=== PATIENT | male | born 1980 ===

== ENCOUNTER 2017-06-17 02:31 | Emergency (ER) | payer SELFPAY ==
[2017-06-17 02:47] VITALS: BMI 34.4
[2017-06-17 02:49] VITALS: BP 134/87; PULSE 83; RESP 16; TEMP 98.9; O2SAT 98
--- NOTE | 2017-06-17 03:05 | ED PDOC ---
HPI: Back Time Seen by Provider: 06/17/17 02:53 Chief Complaint (Nursing): Back Pain Chief Complaint (Provider): low back pain History Per: Patient History/Exam Limitations: no limitations Onset/Duration Of Symptoms: Hrs Current Symptoms Are (Timing): Still Present Quality Of Discomfort: "Pain" Previous Symptoms: Back Pain Exacerbating Factor(s): Turning, Movement Additional History Per: Patient Additional Complaint(s): 37 y/o male presents with low back pain x 5 hours. Patient states he has been experiencing this pain on-and-off x 1 month, had xray which showed degenerative disc disease, and had MRI 3 days ago. Patient states pain starts in lower back and radiates down back of left buttock/upper leg. Patient states he had intercourse last night and since then has noticed pain in left groin, only upon ambulating and lifting left leg. Denies fever, nausea/vomiting, testicular pain /swelling, penile pain/discharge, hematuria, dysuria, numbness/weakness lower extremities, bowel/bladder incontinence. Little relief with Naproxen. Past Medical History Reviewed: Historical Data, Nursing Documentation Vital Signs: Last Vital Signs Temp 98.9 F 06/17/17 02:47 Pulse 83 06/17/17 02:47 Resp 16 06/17/17 02:47 BP 134/87 06/17/17 02:47 Pulse Ox 98 06/17/17 02:47 - Medical History PMH: Back Problems, Hypothyroidism - Surgical History Surgical History: No Surg Hx - Family History Family History: States: Unknown Family Hx - Home Medications Home Medications: Ambulatory Orders Medication Instructions Recorded Ibuprofen [Motrin] 600 mg PO TID 7 Days tab 05/25/17 Cyclobenzaprine [Cyclobenzaprine 10 mg PO BID PRN #14 tab 06/17/17 HCl] Lidocaine 5% [Lidoderm] 1 patch TOP DAILY PRN #7 patch 06/17/17 - Allergies Allergies/Adverse Reactions: Allergies Allergy/AdvReac Type Severity Reaction Status Date / Time No Known Allergies Allergy Verified 06/17/17 02:47 Review of Systems ROS Statement: Except As Marked, All Systems Reviewed And Found Negative Musculoskeletal: Positive for: Back Pain, Leg Pain Physical Exam - Reviewed Nursing Documentation Reviewed: Yes Vital Signs Reviewed: Yes - Physical Exam Appears: Positive for: Well, Non-toxic, No Acute Distress Head Exam: Positive for: ATRAUMATIC, NORMAL INSPECTION, NORMOCEPHALIC Cardiovascular/Chest: Positive for: Regular Rate, Rhythm Respiratory: Positive for: Normal Breath Sounds Gastrointestinal/Abdominal: Positive for: Normal Exam, Other (tender deep palpation left upper groin; no swelling, lesion, redness). Negative for: Tenderness, Hernia Male Genital Exam: Negative for: hernia mass Back: Positive for: Muscle Spasm (left l-spine paraspinals). Negative for: L CVA Tenderness, R CVA Tenderness, Vertebral Tenderness Extremity: Positive for: Normal ROM Neurologic/Psych: Positive for: Alert, Oriented. Negative for: Motor/Sensory Deficits - Laboratory Results Urine dip results: Negative for: Leukocyte Esterase, Blood, Nitrate, Ketones - ECG O2 Sat by Pulse Oximetry: 98 - Progress ED Course And Treament: Toradol IM, flexeril PO, udip On re-eval, patient states he is feeling better. Patient educated on findings, discharged with rx Flexeril, Lidoderm. Advised to continue Naproxen as previously prescribed. FOllow up PMD 2-3 days. Return to ED for worsening/concerning symptoms. Disposition - Clinical Impression Clinical Impression: Low back pain, Lumbar radiculopathy, Strain of left inguinal muscle - Patient ED Disposition Is Patient to be Admitted: No Counseled Patient/Family Regarding: Studies Performed, Diagnosis, Need For Followup, Rx Given - Disposition Disposition: Routine/Home Disposition Time: 04:03 Condition: IMPROVED Prescriptions: Cyclobenzaprine [Cyclobenzaprine HCl] 10 mg PO BID PRN #14 tab PRN Reason: Muscle Spasm Lidocaine 5% [Lidoderm] 1 patch TOP DAILY PRN #7 patch PRN Reason: Pain, Moderate (4-7) Instructions: Lumbar Radiculopathy (ED), Back Pain (ED), Groin Strain (ED) Forms: [employer] (Serbian)
== END 2017-06-17 04:22 | disposition home or self-care (01) ==
LOC: H.ER 02:31
DX: M54.5 Low back pain (principal); M54.16 Radiculopathy, lumbar region; E03.9 Hypothyroidism, unspecified
CPT/HCPCS: 96372; 99282; J1885

== ENCOUNTER 2018-04-23 12:23 | Emergency (ER) | payer SELFPAY ==
[2018-04-23 12:23] VITALS: BMI 34.4
[2018-04-23 12:33] VITALS: BP 146/85; PULSE 79; RESP 20; TEMP 98; O2SAT 98
--- NOTE | 2018-04-23 13:17 | ED PDOC ---
HPI: Back Time Seen by Provider: 04/23/18 12:46 Chief Complaint (Nursing): Back Pain Chief Complaint (Provider): lower back pain History Per: Patient History/Exam Limitations: no limitations Onset/Duration Of Symptoms: Days (x2) Current Symptoms Are (Timing): Still Present Associated Symptoms: None Exacerbating Factor(s): Movement Additional Complaint(s): Bryce Sosa is a 38 year old male, with a past medical history of sciatica, who presents to the emergency department complaining of lower back pain onset x2 days ago. Patient states he fell while playing with his son. He reports pain worsens with movement but doesn't radiate. He did not take any medication for pain. He denies any numbness or tingling, head injuries or other medical complaints. PMD: Luis Infante Past Medical History Reviewed: Historical Data, Nursing Documentation, Vital Signs Vital Signs: Last Vital Signs Temp 98.0 F 04/23/18 12:31 Pulse 79 04/23/18 12:31 Resp 20 04/23/18 12:31 BP 146/85 04/23/18 12:31 Pulse Ox 98 04/23/18 12:31 - Medical History PMH: Back Problems, Hypothyroidism - Surgical History Surgical History: No Surg Hx - Family History Family History: States: Unknown Family Hx - Home Medications Home Medications: Ambulatory Orders Medication Instructions Recorded Ibuprofen [Motrin] 600 mg PO TID 7 Days tab 05/25/17 Cyclobenzaprine [Cyclobenzaprine 10 mg PO BID PRN #14 tab 06/17/17 HCl] Lidocaine 5% [Lidoderm] 1 patch TOP DAILY PRN #7 patch 06/17/17 Cyclobenzaprine [Cyclobenzaprine 10 mg PO Q8H #20 tab 04/23/18 HCl] Ibuprofen [Motrin Tab] 800 mg PO Q6H PRN #20 tab 04/23/18 - Allergies Allergies/Adverse Reactions: Allergies Allergy/AdvReac Type Severity Reaction Status Date / Time No Known Allergies Allergy Verified 06/17/17 02:47 Review of Systems ROS Statement: Except As Marked, All Systems Reviewed And Found Negative Musculoskeletal: Positive for: Back Pain (lower) Neurological: Negative for: Numbness (tingling) Physical Exam - Reviewed Nursing Documentation Reviewed: Yes Vital Signs Reviewed: Yes - Physical Exam Appears: Positive for: No Acute Distress Head Exam: Positive for: ATRAUMATIC, NORMOCEPHALIC Skin: Positive for: Normal Color, Warm, Dry Eye Exam: Positive for: Normal appearance Neck: Positive for: Painless ROM Cardiovascular/Chest: Negative for: Bradycardia, Tachycardia Respiratory: Negative for: Accessory Muscle Use, Respiratory Distress Back: Positive for: Muscle Spasm (left lateral) Extremity: Positive for: Normal ROM (upper and lower extremities). Negative for: Tenderness, Deformity, Swelling Neurologic/Psych: Positive for: Alert, Oriented, Gait (steady) - ECG O2 Sat by Pulse Oximetry: 98 (RA) Pulse Ox Interpretation: Normal Medical Decision Making Medical Decision Making: Time: 12:46 Initial Impression: muscle spasm Initial Plan: --Flexeril 10 mg PO --Toradol 30 mg IM - Scribe Attestation: Documented by Frantz Jaramillo, acting as a scribe for Guera Reynoso PA-C Provider Scribe Attestation: All medical record entries made by the Scribe were at my direction and personally dictated by me. I have reviewed the chart and agree that the record accurately reflects my personal performance of the history, physical exam, medical decision making, and the department course for this patient. I have also personally directed, reviewed, and agree with the discharge instructions and disposition. Disposition - Clinical Impression Clinical Impression: Back pain, Muscle spasm - Patient ED Disposition Is Patient to be Admitted: No - Disposition Referrals: Luis Infante MD [Primary Care Provider] - Disposition: Routine/Home Disposition Time: 14:09 Condition: STABLE Prescriptions: Cyclobenzaprine [Cyclobenzaprine HCl] 10 mg PO Q8H #20 tab Ibuprofen [Motrin Tab] 800 mg PO Q6H PRN #20 tab PRN Reason: Pain Instructions: Muscle Spasms (DC) Forms: [employer] (Turkish)
== END 2018-04-23 14:31 | disposition home or self-care (01) ==
LOC: H.ER 12:23 → SUPCPDRO 12:23 → H.ER 14:31
DX: M62.830 Muscle spasm of back (principal); E03.9 Hypothyroidism, unspecified
CPT/HCPCS: 96372; 99282; J1885